=== PATIENT | male | born 1940 | race Hispanic/Latino ===

== ENCOUNTER 2018-02-17 14:29 | Emergency (ER) | payer MEDICARE ==
[2018-02-17 14:35] VITALS: TEMP 98.7
[2018-02-17] MEDS ORDERED: Fluorescein 1 mg Ophthalmic Strip ONE (14:44)
[2018-02-17] MEDS ORDERED: Silver Sulfadiazine 1% Cream (20 gm) TOP STA (14:50)
[2018-02-17] MEDS ORDERED: Tdap Vaccine 0.5 ml Vial (10-64 yrs) IM ONE (14:54)
[2018-02-17] MEDS ORDERED: Silver Sulfadiazine 1% CREAM (50 gm) ONE (15:01)
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
[2018-02-17] MEDS ORDERED: Morphine 4 MG/ML VIAL ONE (15:02)
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
[2018-02-17 15:54] VITALS: BP 167/109; PULSE 80; RESP 18
[2018-02-17 15:59] VITALS: O2SAT 99
== END 2018-02-17 16:22 | disposition home or self-care (01) ==
LOC: H.ER 14:29
DX: T23.009A Burn of unspecified degree of unspecified hand, unspecified site, initial encounter (principal); X10.2XXA Contact with fats and cooking oils, initial encounter; Y92.000 Kitchen of unspecified non-institutional (private) residence as the place of occurrence of the external cause; I10 Essential (primary) hypertension; I25.10 Atherosclerotic heart disease of native coronary artery without angina pectoris; Z79.01 Long term (current) use of anticoagulants; N40.0 Benign prostatic hyperplasia without lower urinary tract symptoms; Z95.5 Presence of coronary angioplasty implant and graft
CPT/HCPCS: 90471; 90715; 96374; 99285; J1885; J2270